=== PATIENT | male | born 1990 | race American Indian/Alaskan Native ===

== ENCOUNTER 2019-08-31 16:12 | Emergency (ER) | payer SELFPAY ==
--- NOTE | 2019-08-31 19:48 | Emergency Department Report ---
ED General Adult HPI - General Chief complaint: Pain General Stated complaint: FOOT PAIN Source: patient Mode of arrival: Wheelchair Limitations: No Limitations - History of Present Illness Initial comments: This is a pleasant 29 yo male who presents to the ED with a chief complaint of right arm pain for the past 2 hours. He states he went to the plasma donation center today and there was a difficult time getting his IV. He reports they took the blood but were unable to return the blood after the donation. He reports he felt some pain and swelling in the right arm after the first initial attempt at IV. He states this has since resolved. He reports he felt a brief episode of light headedness after he got home that also resolve. he denies fever, chills, night sweats, weakness, or any other related symptoms Onset/Timin -: Gradual, hour(s) Location: right, upper extremity Severity scale (0 -10): 3 Quality: aching Consistency: intermittent Improves with: none Worsens with: none Associated Symptoms: denies other symptoms. denies: chest pain, cough, diaphoresis, fever/chills, headaches, loss of appetite, malaise, nausea/vomiting, rash, seizure, shortness of breath, syncope, weakness Treatments Prior to Arrival: none - Related Data Previous Rx's Medication Instructions Recorded Last Taken Type Ibuprofen [Motrin 800 MG tab] 800 mg PO Q8HR PRN 10 Days #30 08/31/19 Unknown Rx tablet Allergies Allergy/AdvReac Type Severity Reaction Status Date / Time No Known Allergies Allergy Unverified 08/31/19 16:22 ED Review of Systems ROS: Stated complaint: FOOT PAIN Other details as noted in HPI Comment: All other systems reviewed and negative Constitutional: denies: chills, fever Eyes: denies: eye pain, eye discharge, vision change ENT: denies: ear pain, throat pain Respiratory: denies: cough, shortness of breath, wheezing Cardiovascular: denies: chest pain, palpitations Endocrine: no symptoms reported Gastrointestinal: denies: abdominal pain, nausea, diarrhea Genitourinary: denies: urgency, dysuria Musculoskeletal: denies: back pain, joint swelling, arthralgia Skin: denies: rash, lesions Neurological: denies: headache, weakness, paresthesias Psychiatric: denies: anxiety, depression Hematological/Lymphatic: denies: easy bleeding, easy bruising ED Past Medical Hx - Past Medical History Previous Medical History?: No - Surgical History Past Surgical History?: No - Social History Smoking Status: Current Every Day Smoker Substance Use Type: None - Medications Home Medications: Home Medications Medication Instructions Recorded Confirmed Last Taken Type Ibuprofen [Motrin 800 MG tab] 800 mg PO Q8HR PRN 10 Days #30 08/31/19 Unknown Rx tablet ED Physical Exam - General Limitations: No Limitations General appearance: alert, in no apparent distress - Head Head exam: Present: atraumatic, normocephalic - Eye Eye exam: Present: normal appearance - ENT ENT exam: Present: mucous membranes moist - Neck Neck exam: Present: normal inspection - Respiratory Respiratory exam: Present: normal lung sounds bilaterally. Absent: respiratory distress - Cardiovascular Cardiovascular Exam: Present: regular rate, normal rhythm. Absent: systolic murmur, diastolic murmur, rubs, gallop - GI/Abdominal GI/Abdominal exam: Present: soft, normal bowel sounds - Rectal Rectal exam: Present: deferred - Extremities Exam Extremities exam: Present: normal inspection, full ROM. Absent: tenderness (no palpable cords, no streaking, no erythema, edema or induration, no crepitus, normal passive and active ROM of elbow without pain. normal radial pulses and distal sensation and cap refill ) - Back Exam Back exam: Present: normal inspection - Neurological Exam Neurological exam: Present: alert, oriented X3 - Psychiatric Psychiatric exam: Present: normal affect, normal mood - Skin Skin exam: Present: warm, dry, intact, normal color. Absent: rash ED Course Vital Signs 08/31/19 16:48 Temperature 98.4 F Pulse Rate 81 Respiratory 18 Rate Blood Pressure 118/86 O2 Sat by Pulse 97 Oximetry ED Medical Decision Making - Medical Decision Making patient is nontoxic and in no distress. He had pain after IV at plasma donation center. His arm exam was normal. I suspect he may have or may develop superficial thrombophlebitis and Educated him about warm compresses and NSAIDS for this. I offered to check CBC due to him feeling light headed, however he declined which I think is reasonable. Patient is well-appearing and his dizziness has resolved. Vital signs are normal with no hypertension tachycardia or any other symptoms to suggest symptomatically anemia. He has no history of anemia. I suspect this is more volume depletion recommended increase by mouth fluids. I will recommend work note and an NSAID for his pain and recommended outpatient follow his primary care doctor if his symptoms are to persist. He is told to return the MRSA property changing or worsening symptoms. QUESTIONS were answered and he verbalized understanding of the diagnosis, treatment plan and follow-up instructions. - Differential Diagnosis anemia, vasovagal episode, volume depleation Critical care attestation.: If time is entered above; I have spent that time in minutes in the direct care of this critically ill patient, excluding procedure time. ED Disposition Clinical Impression: Superficial thrombophlebitis of arm Qualifiers: Laterality: right Qualified Code(s): I80.8 - Phlebitis and thrombophlebitis of other sites Disposition: - TO HOME OR SELFCARE Is pt being admited?: No Does the pt Need Aspirin: No Condition: Stable Instructions: Superficial Thrombophlebitis (ED) Prescriptions: Ibuprofen [Motrin 800 MG tab] 800 mg PO Q8HR PRN 10 Days #30 tablet PRN Reason: Pain , Severe (7-10) Referrals: SOHAIL CARMONA MD [Staff Physician] - 3-5 Days Forms: Work/School Release Form(ED)
--- NOTE | 2019-08-31 21:01 | Emergency Department Report ---
ED General Adult HPI - General Chief complaint: Pain General Stated complaint: FOOT PAIN Source: patient Mode of arrival: Wheelchair Limitations: No Limitations - History of Present Illness Initial comments: This is a 29-year-old male presents to the emergency department with chief complaint of bilateral foot pain and swelling for the past week. Patient states he has been traveling from [place] and has been hitchhiking and walking for long periods of time. He states he walked from [place] today and since has been able to put pressure on his feet due to pain. He rates the pain as 8/10 in severity with no alleviating factors other than when he elevates and immobilized the feet. He denies any known past medical history, current medication use or known allergies to medications. -: Gradual Location: right, upper extremity Severity scale (0 -10): 10 Quality: aching Improves with: none Worsens with: none Associated Symptoms: denies other symptoms. denies: chest pain, cough, diaphoresis, fever/chills, headaches, loss of appetite, malaise, nausea/vomiting, rash, seizure, shortness of breath, syncope, weakness Treatments Prior to Arrival: none - Related Data Previous Rx's Medication Instructions Recorded Last Taken Type Ibuprofen [Motrin 600 MG tab] 600 mg PO Q8H PRN #30 tablet 08/31/19 Unknown Rx cephALEXin [Keflex] 500 mg PO Q8HR #30 cap 08/31/19 Unknown Rx Allergies Allergy/AdvReac Type Severity Reaction Status Date / Time No Known Allergies Allergy Unverified 08/31/19 16:22 ED Review of Systems ROS: Stated complaint: FOOT PAIN Other details as noted in HPI Comment: All other systems reviewed and negative Constitutional: denies: chills, fever Eyes: denies: eye pain, eye discharge, vision change ENT: denies: ear pain, throat pain Respiratory: denies: cough, shortness of breath, wheezing Cardiovascular: denies: chest pain, palpitations Endocrine: no symptoms reported Gastrointestinal: denies: abdominal pain, nausea, diarrhea Genitourinary: denies: urgency, dysuria Musculoskeletal: as per HPI, other (foot pain). denies: back pain, joint swelling, arthralgia Skin: denies: rash, lesions Neurological: denies: headache, weakness, paresthesias Psychiatric: denies: anxiety, depression Hematological/Lymphatic: denies: easy bleeding, easy bruising ED Past Medical Hx - Past Medical History Previous Medical History?: No - Surgical History Past Surgical History?: No - Social History Smoking Status: Current Every Day Smoker Substance Use Type: None - Medications Home Medications: Home Medications Medication Instructions Recorded Confirmed Last Taken Type Ibuprofen [Motrin 600 MG tab] 600 mg PO Q8H PRN #30 tablet 08/31/19 Unknown Rx cephALEXin [Keflex] 500 mg PO Q8HR #30 cap 08/31/19 Unknown Rx ED Physical Exam - General Limitations: No Limitations General appearance: alert, in no apparent distress - Head Head exam: Present: atraumatic, normocephalic - Eye Eye exam: Present: normal appearance - ENT ENT exam: Present: mucous membranes moist - Neck Neck exam: Present: normal inspection - Respiratory Respiratory exam: Present: normal lung sounds bilaterally. Absent: respiratory distress - Cardiovascular Cardiovascular Exam: Present: regular rate, normal rhythm. Absent: systolic murmur, diastolic murmur, rubs, gallop - GI/Abdominal GI/Abdominal exam: Present: soft, normal bowel sounds - Rectal Rectal exam: Present: deferred - Extremities Exam Extremities exam: Present: normal inspection, full ROM, tenderness (tenderness to palpation of the base of both heels with a 3 cm blister to bilateral heels. There is palpation to base of the first MTP with mild erythema but no open woun ds. Normal range of motion of the toes and feet. No obvious edema. Normal DP and PT pulses. Normal distal sensation and capillary refill. Skin is clean dry and intact.) - Back Exam Back exam: Present: normal inspection - Neurological Exam Neurological exam: Present: alert, oriented X3 - Psychiatric Psychiatric exam: Present: normal affect, normal mood - Skin Skin exam: Present: warm, dry, intact, normal color. Absent: rash ED Course Vital Signs 08/31/19 16:48 Temperature 98.4 F Pulse Rate 81 Respiratory 18 Rate Blood Pressure 118/86 O2 Sat by Pulse 97 Oximetry ED Medical Decision Making - Medical Decision Making Patient presented [facility] after walking for many miles over the past many days. He has obvious blisters to the feet but no skin breakdown. Patient is concerned about a possible infection to his toes which there is some mild erythema to the toes and could be a possible ingrown toenail. I will treat with antibiotics and recommended warm soapy water soaks. We will apply Neosporin to the areas of the feet and give the patient fresh clean socks. The patient has no her to stay at this time and will refer him to local shelters. Patient given outpatient follow-up and return precautions for any change or worsening symptoms. All questions were answered and verbalizes understanding of the diagnosis, treatment plan and return precautions. Critical care attestation.: If time is entered above; I have spent that time in minutes in the direct care of this critically ill patient, excluding procedure time. ED Disposition Clinical Impression: Friction blisters of the soles Qualifiers: Encounter type: initial encounter Laterality: unspecified laterality Qualified Code(s): S90.829A - Blister (nonthermal), unspecified foot, initial encounter Disposition: TO HOME OR SELFCARE Is pt being admited?: No Does the pt Need Aspirin: No Condition: Stable Instructions: Blister (ED) Prescriptions: cephALEXin [Keflex] 500 mg PO Q8HR #30 cap Ibuprofen [Motrin 600 MG tab] 600 mg PO Q8H PRN #30 tablet PRN Reason: Pain Referrals: SOHAIL CARMONA MD [Staff Physician] - 3-5 Days Forms: Work/School Release Form(ED) Time of Disposition: 21:04
[2019-08-31] MEDS ORDERED: NEOMY 3.5 MG/BACIT 400 UNITS/POLY B 5000 UNITS/GM OINT PACKET TP ONE (21:20)
[2019-08-31] MEDS: NEOMY 3.5 MG/BACIT 400 UNITS/POLY B 5000 UNITS/GM OINT PACKET TP ONE (21:20)
[2019-08-31 21:27] VITALS: BP 129/83
== END 2019-08-31 21:25 | disposition home or self-care (01) ==
LOC: ED 16:12
DX: S90.821A Blister (nonthermal), right foot, initial encounter (principal); S90.822A Blister (nonthermal), left foot, initial encounter; F17.200 Nicotine dependence, unspecified, uncomplicated; Z79.1 Long term (current) use of non-steroidal anti-inflammatories (NSAID); Z79.899 Other long term (current) drug therapy; X58.XXXA Exposure to other specified factors, initial encounter; Y93.01 Activity, walking, marching and hiking; Y92.89 Other specified places as the place of occurrence of the external cause; Y99.8 Other external cause status
CPT/HCPCS: A6250

== ENCOUNTER 2019-08-31 22:57 | Emergency (ER) | payer SELFPAY ==
[2019-08-31 23:48] LABS: Basophils % (Auto) 0.6 % (0.0-1.8); Eosinophils # (Auto) 0.1 K/mm3 (0.0-0.4); Eosinophils % (Auto) 1.4 % (0.0-4.3); Hematocrit 44.9 % (35.5-45.6); Hemoglobin 15.3 gm/dl (11.8-15.2); Lymphocytes # (Auto) 1.5 K/mm3 (1.2-5.4); Lymphocytes % (Auto) 23.5 % (13.4-35.0); Mean Corpuscular HGB Conc 34 % (32-34); Mean Corpuscular Volume 95 fl (84-94); Monocytes # (Auto) 0.5 K/mm3 (0.0-0.8); Monocytes % (Auto) 8.5 % (0.0-7.3); Platelet Count 198 K/mm3 (140-440); Red Blood Count 4.73 M/mm3 (3.65-5.03)
[2019-08-31 23:57] LABS: Bacteria,Urine 1+ /HPF (Negative); Bilirubin,Urine NEG (Negative); Blood,Urine NEG (Negative); Color,Urine Yellow (Yellow); Mucus,Urine 2+ /HPF; Protein,Urine <15 mg/dL mg/dL (Negative)
[2019-09-01 00:01] LABS: Amphetamine Screen,Urine PRESUMPTIVE NEGATIVE; Benzodiazepines Screen,Urine PRESUMPTIVE NEGATIVE; Cocaine Screen,Urine PRESUMPTIVE NEGATIVE; Methadone Screen,Urine PRESUMPTIVE NEGATIVE; Opiate Screen,Urine PRESUMPTIVE NEGATIVE
[2019-09-01 00:07] LABS: BUN/Creatinine Ratio 14; Blood Urea Nitrogen 13 mg/dL (9-20); Calcium 9.4 mg/dL (8.4-10.2); Hemolysis Index 8
[2019-09-01 00:14] LABS: Cannabinoid Screen,Urine PRESUMPTIVE POSITIVE
--- NOTE | 2019-09-01 01:55 | Emergency Department Report ---
HPI - General Chief Complaint: Psych Time Seen by Provider: 09/01/19 00:39 - HPI HPI: Room 14 The patient is a 29-year-old male presenting with a chief complaint of suicidal ideation. The patient states she's felt suicidal for the past 3-5 days. Jennynica nt states she is thinking about "tying [his] neck off." The patient states he has been traveling by foot [place] to [place] and began to feel suicidal while in [place]. Patient denies any active attempt at harming himself Location: [See above] Duration: [See above] Quality: [See above] Severity: [See above] Timing: [See above] Context: [See above] Modifying factors: [See above] Associated signs and symptoms: [see above] ED Past Medical Hx - Past Medical History Previous Medical History?: No - Surgical History Past Surgical History?: No - Social History Smoking Status: Current Every Day Smoker (1/2 pack per day) Substance Use Type: Marijuana - Medications Home Medications: Home Medications Medication Instructions Recorded Confirmed Last Taken Type Ibuprofen [Motrin 600 MG tab] 600 mg PO Q8H PRN #30 tablet 08/31/19 Unknown Rx cephALEXin [Keflex] 500 mg PO Q8HR #30 cap 08/31/19 Unknown Rx ED Review of Systems ROS: Stated complaint: MH Other details as noted in HPI Constitutional: no symptoms reported Eyes: denies: eye pain ENT: denies: throat pain Respiratory: no symptoms reported Cardiovascular: denies: chest pain Endocrine: no symptoms reported Gastrointestinal: denies: abdominal pain Genitourinary: denies: dysuria Neurological: denies: headache Psychiatric: suicidal thoughts Physical Exam - Physical Exam Vital Signs: Vital Signs 08/31/19 23:02 Temperature 97.5 F L Pulse Rate 56 L Respiratory 18 Rate Blood Pressure 132/80 O2 Sat by Pulse 99 Oximetry Physical Exam: GENERAL: The patient is well-developed well-nourished male lying on chair not appearing to be in acute distress. [] HEENT: Normocephalic. Atraumatic. Extraocular motions are intact. Patient has moist mucous membranes. NECK: Supple. Trachea midline CHEST/LUNGS: Clear to auscultation. There is no respiratory distress noted. HEART/CARDIOVASCULAR: Regular. There is no tachycardia. There is no gallop rub or murmur. ABDOMEN: Abdomen is soft, nontender. Patient has normal bowel sounds. There is no abdominal distention. SKIN: There is no rash. There is no edema. There is no diaphoresis. NEURO: The patient is awake, alert, and oriented. The patient is cooperative. The patient has normal speech MUSCULOSKELETAL: There is no evidence of acute injury. ED Course Vital Signs 08/31/19 23:02 Temperature 97.5 F L Pulse Rate 56 L Respiratory 18 Rate Blood Pressure 132/80 O2 Sat by Pulse 99 Oximetry ED Medical Decision Making - Lab Data Result diagrams: 08/31/19 23:18 08/31/19 23:18 Laboratory Tests 08/31/19 08/31/19 08/31/19 23:18 23:18 23:18 WBC RBC Hgb Hct MCV MCH MCHC RDW Plt Count Lymph % (Auto) [place] % (Auto) Eos % (Auto) Baso % (Auto) Lymph # [place] # Eos # Baso # Seg Neutrophils % Seg Neutrophils # Sodium 137 Potassium 3.7 Chloride 99.3 Carbon Dioxide 24 Anion Gap 17 BUN 13 Creatinine 0.9 Estimated GFR > 60 BUN/Creatinine Ratio 14 Glucose 85 Calcium 9.4 Urine Color Urine Turbidity Urine pH Ur Specific [place] Urine Protein Urine Glucose (UA) Urine Ketones Urine Blood Urine Nitrite Urine Bilirubin Urine Urobilinogen Ur Leukocyte Esterase Urine WBC (Auto) Urine RBC (Auto) Urine Bacteria (Auto) Urine Mucus Salicylates < 0.3 L Urine Opiates Screen Urine Methadone Screen Acetaminophen < 5.0 L Ur Barbiturates Screen Ur Phencyclidine Scrn Ur Amphetamines Screen U Benzodiazepines Scrn Urine Cocaine Screen U Marijuana (THC) Screen Drugs of Abuse Note Plasma/Serum Alcohol 08/31/19 08/31/19 08/31/19 23:18 23:18 Unknown WBC 6.2 RBC 4.73 Hgb 15.3 H Hct 44.9 MCV 95 H MCH 32 MCHC 34 RDW 13.0 L Plt Count 198 Lymph % (Auto) 23.5 [place] % (Auto) 8.5 H Eos % (Auto) 1.4 Baso % (Auto) 0.6 Lymph # 1.5 [place] # 0.5 Eos # 0.1 Baso # 0.0 Seg Neutrophils % 66.0 Seg Neutrophils # 4.1 Sodium Potassium Chloride Carbon Dioxide Anion Gap BUN Creatinine Estimated GFR BUN/Creatinine Ratio Glucose Calcium Urine Color Yellow Urine Turbidity Clear Urine pH 5.0 Ur Specific [place] 1.033 H Urine Protein <15 mg/dl Urine Glucose (UA) Neg Urine Ketones Tr Urine Blood Neg Urine Nitrite Neg Urine Bilirubin Neg Urine Urobilinogen 2.0 Ur Leukocyte Esterase Neg Urine WBC (Auto) 1.0 Urine RBC (Auto) 2.0 Urine Bacteria (Auto) 1+ Urine Mucus 2+ Salicylates Urine Opiates Screen Urine Methadone Screen Acetaminophen Ur Barbiturates Screen Ur Phencyclidine Scrn Ur Amphetamines Screen U Benzodiazepines Scrn Urine Cocaine Screen U Marijuana (THC) Screen Drugs of Abuse Note Plasma/Serum Alcohol < 0.01 08/31/19 Unknown WBC RBC Hgb Hct MCV MCH MCHC RDW Plt Count Lymph % (Auto) [place] % (Auto) Eos % (Auto) Baso % (Auto) Lymph # [place] # Eos # Baso # Seg Neutrophils % Seg Neutrophils # Sodium Potassium Chloride Carbon Dioxide Anion Gap BUN Creatinine Estimated GFR BUN/Creatinine Ratio Glucose Calcium Urine Color Urine Turbidity Urine pH Ur Specific [place] Urine Protein Urine Glucose (UA) Urine Ketones Urine Blood Urine Nitrite Urine Bilirubin Urine Urobilinogen Ur Leukocyte Esterase Urine WBC (Auto) Urine RBC (Auto) Urine Bacteria (Auto) Urine Mucus Salicylates Urine Opiates Screen Presumptive negative Urine Methadone Screen Presumptive negative Acetaminophen Ur Barbiturates Screen Presumptive negative Ur Phencyclidine Scrn Presumptive negative Ur Amphetamines Screen Presumptive negative U Benzodiazepines Scrn Presumptive negative Urine Cocaine Screen Presumptive negative U Marijuana (THC) Screen Presumptive positive Drugs of Abuse Note Disclamer Plasma/Serum Alcohol - Differential Diagnosis suicidal ideation Critical care attestation.: If time is entered above; I have spent that time in minutes in the direct care of this critically ill patient, excluding procedure time. ED Disposition Clinical Impression: Suicidal ideation Disposition: [id number]/TX-[id number] PSY HOSP/PSY UNIT Is pt being admited?: No Does the pt Need Aspirin: No Condition: Fair Time of Disposition: 01:55 (awaiting acceptance)
--- NOTE | 2019-09-01 16:08 | Consultation ---
History of Present Illness - Reason for Consult Consult date: 09/01/19 Reason for consult: Mental Health Evaluation Requesting physician: SANYA ROSE - Chief Complaint Chief complaint: "I want help" - History of Present Psychiatric Illness 29 y.o. white male who presented to the ER for SI's. Today the patient was calm and cooperative during the assessment. He stated that he walked/hitch hiked from [place] to [place] trying to get to [place], [place]. He stated that he felt upset yesterday after being seen earlier in the day in the ER for foot pain. He stated that he gestured SI's because he felt like no one is trying to help him get to OR. He stated that his SI's are "decreasing." He denies any previous suicide attempts in the past when asked. He stated, "life is hard." He denies HI's and AVH's. He denies erratic sleep and a poor appetite. He denies alcohol consumption (etoh), but acknowledged marijuana use often. Medications and Allergies Allergies Allergy/AdvReac Type Severity Reaction Status Date / Time No Known Allergies Allergy Unverified 08/31/19 16:22 Home Medications Medication Instructions Recorded Confirmed Last Taken Type Ibuprofen [Motrin 600 MG tab] 600 mg PO Q8H PRN #30 tablet 08/31/19 09/01/19 Unknown Rx cephALEXin [Keflex] 500 mg PO Q8HR #30 cap 08/31/19 09/01/19 Unknown Rx Past psychiatric history - Past Medical History Past Medical History: No medical history Past Surgical History: No surgical history - past Psychiatric treatment and history psychiatric treatment history: Hx of substance abuse. Denies a fam psy hx. - Social History Social history: other (Homeless) Mental Status Exam - Vital signs Last Vital Signs Temp 98.1 F 09/01/19 07:00 Pulse 57 L 09/01/19 07:00 Resp 16 09/01/19 07:00 BP 90/44 09/01/19 07:00 Pulse Ox 94 09/01/19 07:00 - Exam Narrative exam: MSE: Appearance: calm, cooperative Behavior: regular eye contact Speech: regular rate and tone Mood:: "okay" Affect: congruent to mood Thought Process: circumstantial Thought Content: denies SI/HI's and AVH's Motor Activity: ambulatory Cognition: A/O x3 Insight: variable to fair Judgment: variable Results Result Diagrams: 08/31/19 23:18 08/31/19 23:18 Abnormal lab results 08/31/19 08/31/19 08/31/19 Range/Units 23:18 23:18 23:18 Hgb 15.3 H (11.8-15.2) gm/dl MCV 95 H (84-94) fl RDW 13.0 L (13.2-15.2) % [place] % (Auto) 8.5 H (0.0-7.3) % Ur Specific [place] (1.003-1.030) Salicylates < 0.3 L (2.8-20.0) mg/dL Acetaminophen < 5.0 L (10.0-30.0) ug/mL 08/31/19 Range/Units Unknown Hgb (11.8-15.2) gm/dl MCV (84-94) fl RDW (13.2-15.2) % [place] % (Auto) (0.0-7.3) % Ur Specific [place] 1.033 H (1.003-1.030) Salicylates (2.8-20.0) mg/dL Acetaminophen (10.0-30.0) ug/mL All other labs normal. Assessment and Plan Assessment and plan: Impression: Cannabis Use DO. Today the patient was calm during the assessment. DDx: MDD, Substance Induced Mood DO Recommendation/Plan: Reevaluate the patient's 1013 in [address] Hanh Evangelista.
[2019-09-02 08:12] VITALS: BP 108/70
--- NOTE | 2019-09-02 08:25 | Progress Note ---
Subjective - Reason for Consult Consult date: 09/02/19 Reason for consult: Psychiatry Follow-up - Chief Complaint Chief complaint: "I will make a better decision" 29 y.o. white male who presented to the ER for SI's. Today the patient was calm and cooperative during the assessment. He stated he was irritated during his second ER visit and gestured SI's. He stated that he would like intermediate information once discharged. He denies SI/HI's and AVH's. Per the record, no behavioral disturbances overnight. Mental Status Exam - Vital signs Last Vital Signs Temp 97.7 F 09/02/19 07:00 Pulse 74 09/02/19 07:00 Resp 18 09/02/19 07:00 BP 108/70 09/02/19 07:00 Pulse Ox 99 09/02/19 07:00 - Exam Narrative exam: MSE: Appearance: calm, cooperative Behavior: regular eye contact Speech: regular rate and tone Mood:: "okay" Affect: congruent to mood Thought Process: logical tial Thought Content: denies SI/HI's and AVH's Motor Activity: ambulatory Cognition: A/O x3 Insight: variable to fair Judgment: variable Assessment and Plan Impression: Cannabis Use DO. Today the patient was calm during the assessment. The patient is no threat to self. DDx: MDD, Substance Induced Mood DO Recommendation/Plan: Rescind 1013. Discussed the importance to abstain from recreational drug use with the patient, he verbalized understanding. Case mgmt involvement, the patient is homeless. Dipso: The patient can follow up with [facility] for outpatient psy services. Staffed with Dr Hanh Evangelista.
== END 2019-09-02 10:45 | disposition home or self-care (01) ==
LOC: ED 22:57
DX: F32.9 Major depressive disorder, single episode, unspecified (principal)
CPT/HCPCS: 36415; 80048; 80307; 80320; 81001; 85025; G0480